=== PATIENT | female | born 1990 | race Caucasian/White ===

== ENCOUNTER → 2019-12-23 10:02 | Outpatient (BNVA) | payer OTHER, SELFPAY | PROVIDERS: Family Provider Family Medicine; PCP Family Medicine; Visit Provider Family Medicine | DX: E78.5 Hyperlipidemia, unspecified (principal); G60.9 Hereditary and idiopathic neuropathy, unspecified; R03.0 Elevated blood-pressure reading, without diagnosis of hypertension | CPT/HCPCS: 80053; 80061; 85025 ==